=== PATIENT | male | born 1950 | race Caucasian/White ===

== ENCOUNTER 2025-04-14 05:14 | Inpatient (IN) | payer MEDICARE ==
[2025-04-09 09:15] LABS: BASOPHILS % 1.0 % (0.0-1.0); EOSINOPHILS % 4.4 % (0.0-6.0); LYMPHOCYTES % 24.4 % (18.0-39.1); MONOCYTES % 10.6 % (4.4-11.3); NEUTROPHILS % 59.1 % (38.7-80.0); RED CELL DISTRIBUTION WIDTH 16.8 % (11.7-14.4)
[2025-04-09 09:43] LABS: EST GLOMERULAR FILTRATION RATE 44.0 ML/MIN (>=60)
[2025-04-14] VITALS (9 sets, daily range): BP systolic 127–137; BP diastolic 63–95; PULSE 72–105; RESP 15–20; TEMP 97.5–98.2; O2SAT 93–100
[~2025-04-14] VITALS: Ht 167.6 cm; Wt 62.6 kg
[~2025-04-14 05:14] MED LIST: AMLODIPINE BESYL5 MG PO; ASPIRIN81 MG PO; B-121000 MC2; BICALUTAMIDE50 MG PO; CALCIUM-MAGNES1 EAC6; CLOPIDOGREL75 MG PO; D3-5000125 MCG; FAMOTIDINE20 MG PO; FEROSUL325 MG PO; FINASTERIDE5 MG PO; FLOMAX0.4 MG PO; FOLIC ACID0.4 MG PO; KETOROLAC TROME10 MG PO; MOVE FREE JOIN1 EACH; MULTIVITAMIN1 EACH; SIMVASTATIN20 MG PO; TENORMIN25 MG PO
[2025-04-14] MEDS: SODIUM CHLORIDE 0.9% 1000ML 1,000 ML ONE (05:55)
[2025-04-14] MEDS: GENTAMICIN 80MG/NS 100 ML 200 ML IV ONE (05:55)
[2025-04-14] MEDS: CEFTRIAXONE 1 GM VIAL ONE (05:56)
[2025-04-14] MEDS ORDERED: FENTANYL CITRATE/PF 100MCG/2 ML INJ ONE ×2 (06:39→07:47)
[2025-04-14] MEDS ORDERED: ROCURONIUM BROMIDE 1 ML IV ONE (06:39)
[2025-04-14] MEDS ORDERED: SUCCINYLCHOLINE CHLORIDE 20 MG/ML 10ML VIAL ONE (06:39)
[2025-04-14] MEDS ORDERED: SEVOFLURANE INHAL SOLN 250 ML PEN BTL ONE (06:40)
[2025-04-14] MEDS ORDERED: PROPOFOL IV EMULSION 10 MG/ML 20 ML VIAL ONE ×2 (06:40→08:11)
[2025-04-14] MEDS ORDERED: LIDOCAINE HCL 2% LOCAL INJ 5 ML SDV VIAL INJ ONE (06:40)
[2025-04-14] MEDS ORDERED: ACETAMINOPHEN 1000 MG/100 ML 100 ML IV ONE (07:34)
[2025-04-14] MEDS ORDERED: DEXAMETHASONE SOD PHOS INJ 4 MG/ML SDV ONE (07:42)
[2025-04-14] MEDS ORDERED: ONDANSETRON HCL INJ 2MG/ML 2ML 2 MG/ML VIAL ONE (07:42)
[2025-04-14] MEDS ORDERED: SUGAMMADEX SODIUM 200 MG/2 ML VIAL IV ONE (08:05)
[2025-04-14] MEDS ORDERED: ONDANSETRON HCL INJ 2MG/ML 2ML 2 MG/ML VIAL IV PRN (09:15)
[2025-04-14] MEDS ORDERED: DIPHENHYDRAMINE HCL 25 MG CAP PO PRN (09:15)
[2025-04-14] MEDS: FENTANYL CITRATE/PF 100MCG/2 ML INJ ONE (09:16)
[2025-04-14] MEDS: HYDROMORPHONE 1MG/1ML INJ ONE (09:53)
[2025-04-14 10:08] LABS: BASOPHILS % 0.5 % (0.0-1.0); EOSINOPHILS % 1.3 % (0.0-6.0); LYMPHOCYTES % 13.4 % (18.0-39.1); MONOCYTES % 2.4 % (4.4-11.3); NEUTROPHILS % 82.0 % (38.7-80.0); RED CELL DISTRIBUTION WIDTH 16.5 % (11.7-14.4)
[2025-04-14] MEDS: SODIUM CHLORIDE 0.9% 1000ML 1,000 ML IV SCH (10:43)
[2025-04-14 10:57] LABS: EST GLOMERULAR FILTRATION RATE 69.0 ML/MIN (>=60)
[2025-04-14] MEDS: SENNA-S TABLET PO SCH (17:00)
[2025-04-14] MEDS: ACETAMINOPHEN/CODEINE 300MG - 30MG TAB PO PRN (17:33)
[2025-04-14] MEDS: PHENAZOPYRIDINE HCL 100 MG TAB PO PRN (18:47)
[2025-04-14] MEDS: ACETAMINOPHEN 1000 MG/100 ML IV PRN (23:43)
[2025-04-15] VITALS (9 sets, daily range): BP systolic 121–134; BP diastolic 78–86; PULSE 81–109; RESP 18–20; TEMP 97.9–98.7; O2SAT 94–99
[2025-04-15 05:02] LABS: BASOPHILS % 0.1 % (0.0-1.0); EOSINOPHILS % 0.0 % (0.0-6.0); LYMPHOCYTES % 10.2 % (18.0-39.1); MONOCYTES % 12.7 % (4.4-11.3); NEUTROPHILS % 76.7 % (38.7-80.0); RED CELL DISTRIBUTION WIDTH 17.1 % (11.7-14.4)
[2025-04-15 05:46] LABS: EST GLOMERULAR FILTRATION RATE 57.0 ML/MIN (>=60)
[2025-04-16] VITALS (9 sets, daily range): BP systolic 122–157; BP diastolic 63–96; PULSE 83–93; RESP 16–18; TEMP 98–99; O2SAT 98–100
[2025-04-16 05:35] LABS: BASOPHILS % 0.5 % (0.0-1.0); EOSINOPHILS % 1.6 % (0.0-6.0); LYMPHOCYTES % 18.5 % (18.0-39.1); MONOCYTES % 13.0 % (4.4-11.3); NEUTROPHILS % 66.0 % (38.7-80.0); RED CELL DISTRIBUTION WIDTH 16.8 % (11.7-14.4)
[2025-04-16 06:36] LABS: EST GLOMERULAR FILTRATION RATE 62.0 ML/MIN (>=60)
[2025-04-16] MEDS ORDERED: SODIUM CHLORIDE 0.9% 250ML 250 ML IV ONE ×2 (08:30)
[2025-04-16] MEDS: SODIUM CHLORIDE 0.9% 250ML 250 ML IV ONE (13:16)
[2025-04-17] VITALS (9 sets, daily range): BP systolic 142–156; BP diastolic 79–99; PULSE 80–94; RESP 18–19; TEMP 98.2–98.7; O2SAT 96–100
[2025-04-17 05:39] LABS: BASOPHILS % 0.9 % (0.0-1.0); EOSINOPHILS % 3.2 % (0.0-6.0); LYMPHOCYTES % 21.1 % (18.0-39.1); MONOCYTES % 12.5 % (4.4-11.3); NEUTROPHILS % 61.9 % (38.7-80.0); RED CELL DISTRIBUTION WIDTH 16.9 % (11.7-14.4)
[2025-04-17 05:47] LABS: EST GLOMERULAR FILTRATION RATE 64.0 ML/MIN (>=60)
[2025-04-17] MEDS: DOCUSATE SODIUM 100 MG CAP PO SCH (09:42)
[2025-04-17] MEDS: SENNOSIDES 8.6 MG TAB PO SCH (09:43)
[2025-04-17] MEDS: POLYETHYLENE GLYCOL 3350 17 GM PACK PO PRN (16:06)
[2025-04-17] MEDS ORDERED: HYDRALAZINE HCL 20 MG/ML VIAL IV PRN (23:30)
[2025-04-18] MEDS: BISACODYL 10 MG SUPP PR PRN (02:33)
[2025-04-18 05:20] LABS: BASOPHILS % 0.4 % (0.0-1.0); EOSINOPHILS % 2.0 % (0.0-6.0); LYMPHOCYTES % 12.0 % (18.0-39.1); MONOCYTES % 13.3 % (4.4-11.3); NEUTROPHILS % 71.9 % (38.7-80.0); RED CELL DISTRIBUTION WIDTH 16.5 % (11.7-14.4)
[2025-04-18 05:46] LABS: EST GLOMERULAR FILTRATION RATE 61.0 ML/MIN (>=60)
[2025-04-18 07:32] VITALS: PULSE 96; RESP 20; O2SAT 98
[2025-04-18] MEDS: AMLODIPINE BESYLATE 5 MG TAB PO SCH (08:41)
[2025-04-18] MEDS: TAMSULOSIN HCL 0.4 MG CAP PO SCH (08:41)
[2025-04-18 08:52] VITALS: BP 149/81; PULSE 79; RESP 18; TEMP 98.3; O2SAT 98
[2025-04-18] MEDS: ATENOLOL 50 MG TAB PO SCH (08:57)
[2025-04-18] MEDS ORDERED: LEVOFLOXACIN500 MG PO (11:20)
[2025-04-18 11:58] VITALS: BP 138/93; PULSE 84; RESP 18; TEMP 98.1; O2SAT 98
== END 2025-04-18 13:30 | disposition home or self-care (01) | DRG 713 ==
LOC: OR 05:14 → PACU V 09:10 → MED/SURG 10:11
PROVIDERS: ADMIT Internal Medicine; ATTEND Internal Medicine
PROC: BT141ZZ Fluoroscopy of Kidneys, Ureters and Bladder using Low Osmolar Contrast (ICD-10-PCS; 2025-04-14)
PROC: 0VB08ZZ Excision of Prostate, Via Natural or Artificial Opening Endoscopic (ICD-10-PCS; principal; 2025-04-14 07:19)
PROC: 0T9B70Z Drainage of Bladder with Drainage Device, Via Natural or Artificial Opening (ICD-10-PCS; 2025-04-14 07:19)
PROC: 30233N1 Transfusion of Nonautologous Red Blood Cells into Peripheral Vein, Percutaneous Approach (ICD-10-PCS; 2025-04-16)
DX: C61 Malignant neoplasm of prostate (principal); D62 Acute posthemorrhagic anemia; N13.8 Other obstructive and reflux uropathy; N40.1 Benign prostatic hyperplasia with lower urinary tract symptoms; I10 Essential (primary) hypertension; E78.5 Hyperlipidemia, unspecified; R31.9 Hematuria, unspecified; K59.00 Constipation, unspecified; R39.14 Feeling of incomplete bladder emptying; M17.11 Unilateral primary osteoarthritis, right knee; N32.81 Overactive bladder; Z79.82 Long term (current) use of aspirin; Z79.02 Long term (current) use of antithrombotics/antiplatelets
CPT/HCPCS: 36415; 74420; 80048; 83735; 85014; 85018; 85025; 86850; 86900; 86920; 88305; 94799; J0330; J0696; J1100; J1171; J1580; J2003; J2405; J7030; J7050; P9016